=== PATIENT | male | born 1955 | race Caucasian/White ===

== ENCOUNTER 2017-01-04 04:53 | Inpatient (IN) | payer OTHER ==
[~2017-01-04] VITALS: Ht 180.3 cm; Wt 104.4 kg
[~2017-01-04 04:53] MED LIST: COREG12.5 M1 PO; COUMADIN5 MG PO; FLOMAX0.4 MG PO; K-DUR10 MEQ PO; LAMICTAL100 MG PO; LASIX40 MG PO; LEXAPRO10 MG PO; LIPITOR20 MG PO; LO-DOSE ASPIRIN81 M2 PO; NORVASC2.5 MG PO; PROTONIX40 MG PO; ZESTRIL20 MG PO
[2017-01-04 05:59] VITALS: BP 115/86
[2017-01-04 06:55] LABS: INTER. NORMALIZED RATIO 1.9; PROTHROMBIN TIME 20.2 (9.2-11.2); PTT 32.7 (25-32)
[2017-01-04 10:47] LABS: CK-MB 0.7 ng/mL (0.0-4.9)
[2017-01-04 11:14] LABS: CREATINE KINASE 51 IU/L (1-294); TOTAL CK 51 IU/L (1-294)
[2017-01-04 16:25] VITALS: BP 117/81
[2017-01-04 19:49] VITALS: BP 109/72
[2017-01-05 01:35] VITALS: BP 96/61
[2017-01-05 03:45] VITALS: BP 110/70
[2017-01-05 05:47] LABS: ANION GAP 6 MEQ/L (2-14); CHLORIDE 105 MEQ/L (99-109); CREATINE KINASE 54 IU/L (1-294); GFR ESTIMATE (CALCULATED) > 59 mL/min/; GLUCOSE 131 mg/dL (70-99); POTASSIUM 3.4 MEQ/L (3.7-5.4); SAMPLE HEMOLYSIS CHECK 0; SAMPLE ICTERIC CHECK 0; SAMPLE LIPEMIA CHECK 0; SODIUM 140 MEQ/L (136-147); TOTAL CK 54 IU/L (1-294); UREA NITROGEN (BUN) 11 mg/dL (9-23)
[2017-01-05 05:53] LABS: HEMATOCRIT 39.3 % (38.0-50.0); MCH 30.7 PG (29.0-34.0); MCHC 34.4 G/DL (30.0-36.0); MCV 89.3 FL (86-99); MEAN PLAT.VOLUME 11.5 uM^3 (9.0-12.4); PLATELET COUNT 154 K/uL (156-360); RBC DIS.WIDTH-CV 13.3 % (11.8-14.6); RBC DIS.WIDTH-SD 43.7 % (39-53); WHITE BLOOD COUNT 14.1 K/uL (4.1-10.2)
[2017-01-05 07:03] LABS: CK-MB 0.7 ng/mL (0.0-4.9)
[2017-01-05 07:13] VITALS: BP 100/70
[2017-01-05] MEDS ORDERED: HYDROCODON-ACE1 EAC7 PO (08:36)
[2017-01-05 11:17] VITALS: BP 103/69
== END 2017-01-05 14:05 | disposition home or self-care (01) | DRG 272 ==
LOC: 2SOUTH 04:53 → SDC 14:59 → EDSTATUS 14:59 → 2SOUTH 15:00 → 4EAST 15:33 → 2SOUTH 16:10 → 4EAST 01-05 14:05
PROVIDERS: Surgery
DX: I72.3 Aneurysm of iliac artery (principal); J44.9 Chronic obstructive pulmonary disease, unspecified; I10 Essential (primary) hypertension; I25.10 Atherosclerotic heart disease of native coronary artery without angina pectoris; E78.00 Pure hypercholesterolemia, unspecified; K21.9 Gastro-esophageal reflux disease without esophagitis; G40.909 Epilepsy, unspecified, not intractable, without status epilepticus; M19.90 Unspecified osteoarthritis, unspecified site; F17.210 Nicotine dependence, cigarettes, uncomplicated; I25.2 Old myocardial infarction; Z95.5 Presence of coronary angioplasty implant and graft; Z86.73 Personal history of transient ischemic attack (TIA), and cerebral infarction without residual deficits; Z98.1 Arthrodesis status; Z79.82 Long term (current) use of aspirin; Z79.01 Long term (current) use of anticoagulants
CPT/HCPCS: 80048; 82550; 82553; 85027; 85610; 85730; 93005; C1725; C1760; C1769; C1874; C1884; C1894; J0330; J0690; J1100; J1644; J2250; J2405; J2710; J2720; J3010; J7120